=== PATIENT | male | born 1975 | race Caucasian/White ===

== ENCOUNTER 2024-10-15 21:01 | Emergency (ER) | payer OTHER, SELFPAY ==
[2024-10-15 21:08] VITALS: BP 122/78; PULSE 76; RESP 16; TEMP 36.8; O2SAT 98; BMI 29.7
--- NOTE | 2024-10-15 21:12 | CTR_ITS ---
PROCEDURE INFORMATION: Exam: CT Abdomen And Pelvis Without Contrast Exam date and time: 10/15/2024 9:17 PM Age: 49 years old Clinical indication: Abdominal pain; Prior surgery; Surgery date: 6+ months; Surgery type: Gb. Inguinal hernia; C/O left flank pain. History of stones. ; Additional info: L flank pain TECHNIQUE: Imaging protocol: Computed tomography of the abdomen and pelvis without contrast. Radiation optimization: All CT scans at this facility use at least one of these dose optimization techniques: automated exposure control; mA and/or kV adjustment per patient size (includes targeted exams where dose is matched to clinical indication); or iterative reconstruction. COMPARISON: No relevant prior studies available. RADIATION DOSE METRICS: Total DLP (mGy-cm): 801.23 FINDINGS: Lungs: Visualized lung bases are clear. Liver: The liver is unremarkable. Gallbladder and biliary ducts: Status post cholecystectomy. No significant biliary ductal dilation. Pancreas: The pancreas is unremarkable. Spleen: The spleen is unremarkable. Adrenal glands: The adrenal glands are unremarkable. Kidneys and ureters: Multiple nonobstructing bilateral nephroliths, measuring up to 0.5 cm. No hydronephrosis or hydroureter. Stomach and bowel: Mild sigmoid diverticulosis. No CT evidence of acute diverticulitis. No evidence of bowel obstruction. Appendix: The appendix is normal. Intraperitoneal space: No extraluminal free air. No significant free fluid in the abdomen or pelvis. Vasculature: Abdominal aorta and its major branches are within normal limits. No abdominal aortic aneurysm. Lymph nodes: No distinct pathologically enlarged lymphadenopathy. Urinary bladder: Punctate stone in the dependent urinary bladder may represent a recently passed punctate ureterolith. Urinary bladder demonstrates a mildly thickened bladder wall. Reproductive: Prostate is small in size with multiple small coarse calcifications. 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 Soft tissues: Visualized superficial soft tissues are within normal limits. CT/CT kidney stone [id number] IMPRESSION: 1. Multiple nonobstructing bilateral nephroliths, measuring up to 0.5 cm. No hydronephrosis or hydroureter. 2. Punctate stone in the dependent urinary bladder may represent a recently passed punctate ureterolith. 3. Urinary bladder demonstrates a mildly thickened bladder wall. This is likely incidental secondary to low level of distension. Mild cystitis could have a similar appearance.
--- NOTE | 2024-10-15 21:15 | W.ED.MALEGU ---
HPI - Male Genitourinary General: Chief complaint: Urogenital-Male Stated complaint: flank pain, pain when laying down Time Seen by Provider: 10/15/24 21:07 Source: patient Mode of arrival: ambulatory Limitations: no limitations History of Present Illness: 49-year-old male states that been having left-sided lower back pain and flank pain for last 2 days had some slight dysuria states pains been sharp nature rates 7 out of 10 is worse with movement and palpation had a history of kidney stones also has a history of chronic back pain. Denies any vomiting or fevers Associated symptoms: Deny nausea or vomiting Related Data Previous Rx's ?Medication ?Instructions ?Recorded escitalopram oxalate 10 mg tablet 10 mg PO DAILY 30 days #30 tabs 04/08/22 hydrocodone 5 mg-acetaminophen 325 1 tab PO Q6H PRN pain 5 days #20 09/03/24 mg tablet tabs methocarbamol 750 mg tablet 750 mg PO Q8H #30 tabs 09/03/24 prednisone 20 mg tablet 60 mg (3 x 20 mg) PO DAILY 5 days 09/03/24 #15 tabs naproxen 500 mg tablet (Naprosyn) 500 mg PO BID PRN pain #20 tabs 10/15/24 Allergies Allergy/AdvReac Type Severity Reaction Status Date / Time peanut Allergy ADR-Headach Verified 09/03/24 15:40 e Review of Systems Const: Denies: fever(s), chills, body aches or change in appetite ENMT: Denies: throat pain or dental pain Card: Denies: chest pain Resp: Denies: dyspnea GI: Denies: abdominal pain, nausea, vomiting or diarrhea : Reports: flank pain Musc: Reports: back pain; Denies: neck pain Skin/Breast: Denies: rash Neuro: Denies: headache(s) PFSH ED PFSH: Medical History MDD (major depressive disorder) Social History Smoking and tobacco/nicotine status: never used tobacco/nicotine Second hand smoke exposure: No Current gender identity: Male Physical Exam Const: COMMON NORMALS: no acute distress, patient oriented x3 and healthy appearing HENMT: COMMON NORMALS: normocephalic and atraumatic HEAD & SCALP: normocephalic and atraumatic Eye: COMMON NORMALS: conjunctivae normal CONJUNCTIVA: Yes conjunctivae normal Neck/C-Spine: COMMON NORMALS: full ROM and supple Chest: COMMONS NORMALS: normal inspection of the chest Resp: COMMON NORMALS: normal respiratory effort Cardio: COMMON NORMALS: regular rate RATE: regular rate GI: COMMON NORMALS: Normal to inspection, nondistended, normoactive bowel sounds present, Soft to palpation, non-tender and no masses PALPATION: Yes Soft to palpation Back/Pelvis: OTHER: Tenderness left lower back Extremity: COMMON NORMALS: normal to inspection and full ROM Neuro: COMMON NORMALS: patient oriented x3, moves all extremities and no focal motor deficits Psych: COMMON NORMALS: mental status grossly normal, Normal thought process present and cooperative THOUGHT PROCESS: Normal thought process present Skin: COMMON NORMALS: no rashes or lesions noted and no wounds GENERAL SKIN EXAM: no rashes or lesions noted Course Vital Signs: Vital signs: Vital Signs Temperature 98.2 F 10/15/24 21:08 Pulse Rate 76 10/15/24 21:08 Respiratory Rate 18 10/15/24 21:36 Blood Pressure 122/78 10/15/24 21:08 Pulse Oximetry 96 10/15/24 21:36 Oxygen Delivery Me thod Room Air 10/15/24 21:08 MDM - Male Medical Decision Making Patient presents here with back pain flank pain patient CT showed a possible recently passed stone no sign of acute kidney stone at this time pain could be from the recently passed stone or muscular he is well-appearing here he stable for discharge follow-up PCP return if worsening. Medical Records I reviewed the patient's medical records. Lab Data I reviewed the patient's lab results. 10/15/24 21:31 10/15/24 21:31 Radiology Impressions Abdomen/Pelvis CT 10/15/24 21:12 IMPRESSION: 1. Multiple nonobstructing bilateral nephroliths, measuring up to 0.5 cm. No hydronephrosis or hydroureter. 2. Punctate stone in the dependent urinary bladder may represent a recently passed punctate ureterolith. 3. Urinary bladder demonstrates a mildly thickened bladder wall. This is likely incidental secondary to low level of distension. Mild cystitis could have a similar appearance. Laboratory Results WBC 11.24 10^3/uL (3.29-11.43) 10/15/24 21: RBC 4.46 10^6/uL (3.85-5.65) 10/15/24 21: Hgb 13.00 g/dL (11.27-16.99) 10/15/24 21: Hct 39.2 % (37-53) 10/15/24 21: MCV 87.9 fl (82-101) 10/15/24 21: MCH 29.1 pg (27-33) 10/15/24 21: MCHC 33.2 g/dL (30-55) 10/15/24 21: RDW 13.2 % (12.1-15.1) 10/15/24: Plt Count 316 10^3/cmm (157-399) 10/15/24 21: MPV 9.6 fL (7.4-10.4) 10/15/24 21: Neut % (Auto) 65.6 % 10/15/24 21: Lymph % (Auto) 25.6 % 10/15/24 21: [place] % (Auto) 6.5 % 10/15/24: Eos % (Auto) 1.2 % 10/15/24: Baso % (Auto) 0.7 % 10/15/24: Neut # (Auto) 7.38 10^3/uL (1.8-7.7) 10/15/24: Lymph # (Auto) 2.9 10^3/uL (0.8-4.8) 10/15/24 21: [place] # (Auto) 0.7 10^3/uL (0.2-0.9) 10/15/24 21: Eos # (Auto) 0.1 10^3/uL (0.0-0.8) 10/15/24: Baso # (Auto) 0.1 10^3/uL (0.0-0.1) 10/15/24: Nucleated RBC % (auto) 0 % 10/15/24: Nucleated RBCs # 0.0 /100WBC 10/15/24 21: Sodium 143 mmol/L (136-145) 10/15/24 21: Potassium 3.6 mmol/L (3.5-5.1) 10/15/24 21:31 Chloride 107 mmol/L (98-107) 10/15/24 21:31 Carbon Dioxide 26 mmol/L (22-29) 10/15/24 21:31 Anion Gap 13.6 (5-19) 10/15/24 21:31 BUN 13 mg/dL (6-20) 10/15/24 21:31 Creatinine 0.8 mg/dL (0.7-1.2) 10/15/24 21: GFR Calculation 103.2 mL/min (90-130) 10/15/24 21: Glucose 113 mg/dL (65-115) 10/15/24 21: Calcium 8.9 mg/dL (8.5-10.5) 10/15/24 21: Total Bilirubin 0.2 mg/dL (0.15-1.2) 10/15/24 21: AST 14 U/L (0-40) 10/15/24 21: ALT 14 U/L (0-41) 10/15/24 21: Alkaline Phosphatase 105 U/L (40-130) 10/15/24 21:31 Total Protein 6.7 g/dL (6.6-8.7) 10/15/24 21: Albumin 4.1 g/dL (3.5-5.2) 10/15/24 21:31 Globulin 2.6 g/dL (1.3-4.6) 10/15/24 21:31 Urine Color Yellow (Yellow) 10/15/24 21:16 Urine Appearance Clear (CLEAR) 10/15/24 21:16 Urine pH 6.0 (5-7) 10/15/24 21:16 Ur Specific [place] 1.017 (1.005-1.030) 10/15/24 21:16 Urine Protein Negative (Negative) 10/15/24 21:16 Urine Glucose (UA) Negative (Normal) 10/15/24 21:16 Urine Ketones Negative (Negative) 10/15/24 21:16 Urine Blood Negative (Negative) 10/15/24 21:16 Urine Nitrate Negative (Negative) 10/15/24 21:16 Urine Bilirubin Negative (Negative) 10/15/24 21:16 Urine Urobilinogen 1.0 mg/dL (Negative) 10/15/24 21:16 Ur Leukocyte Esterase Negative (Negative) 10/15/24 21:16 Urine RBC 0-2 /hpf (0-2) 10/15/24 21:16 Urine WBC 0-5 /hpf (0-5) 10/15/24 21:16 Ur Squamous Epith Cells 0-5 /hpf (0-5) 10/15/24 21:16 Amorphous Sediment Not Reportable 10/15/24 21:16 Urine Bacteria None seen /hpf (NONE) 10/15/24 21:16 Hyaline Casts 0-4 /lpf H 10/15/24 21:16 All radiology interpretation(s) finalized by discharge Discharge Plan Discharge Patient Disposition: Home Clinical Impression: Back pain, Kidney stone Condition: Stable Prescriptions: New naproxen [Naprosyn] 500 mg tablet 500 mg PO BID PRN (Reason: pain) Qty: 20 0RF No Action hydrocodone-acetaminophen 5-325 mg tablet 1 tab PO Q6H PRN (Reason: pain) 5 Days Qty: 20 0RF prednisone 20 mg tablet 60 mg PO DAILY 5 Days Qty: 15 0RF methocarbamol 750 mg tablet 750 mg PO Q8H Qty: 30 0RF escitalopram oxalate 10 mg tablet 10 mg PO DAILY 30 Days Qty: 30 3RF Discharge Orders: Discharge ED (Routine); Ordered 10/15/24 Ordered By: Nikole Tee Discharge Diet: Advance as tolerated Discharge Activity: Resume usual activity Patient Instructions: Kidney Stones (ED), Back Pain (ED) Print Language: Thai Coding Level of Care Code ED Business Services Manager for [facility]ly[facility] Anton
[2024-10-15 21:24] LABS: Bilirubin Urine Negative (Negative); Blood Urine Negative (Negative); Glucose Urine UA Negative (Normal); Ketones Urine Negative (Negative); Leukocyte Esterase Urine Negative (Negative); Nitrate Urine Negative (Negative); Protein Urine Negative (Negative); Specific Gravity, Urine 1.017 (1.005-1.030); Urine Appearance Clear (CLEAR); Urine Color Yellow (Yellow)
[2024-10-15 21:26] LABS: Add Urine Microscopic? YES; Bacteria Urine None Seen /hpf; Hyaline Casts Urine 0-4 /lpf; RBC Urine 0-2 /hpf (0-2); Squamous Epithelial Cell Urine 0-5 /hpf (0-5); WBC Urine 0-5 /hpf (0-5)
[2024-10-15] MEDS: ketorolac 30 mg/mL INJ 15 MG IVP (21:32)
[2024-10-15] MEDS: ondansetron 2 mg/ML SDV 2 mL 4 MG IVP (21:34)
[2024-10-15 21:36] VITALS: RESP 18; O2SAT 96
[2024-10-15] MEDS: morphine 4 mg/mL SDV 1 mL IVP (21:36)
[2024-10-15 21:48] LABS: Basophils # 0.1 10^3/uL (0.0-0.1); Basophils % 0.7 %; Eosinophils # 0.1 10^3/uL (0.0-0.8); Eosinophils % 1.2 %; Hematocrit 39.2 % (37-53); Lymphocytes # 2.9 10^3/uL (0.8-4.8); Lymphocytes % 25.6 %; Mean Corpuscular HGB Conc 33.2 g/dL (30-55); Mean Corpuscular Hemoglobin 29.1 pg (27-33); Mean Corpuscular Volume 87.9 fl (82-101); Mean Platelet Volume 9.6 fL (7.4-10.4); Monocytes # 0.7 10^3/uL (0.2-0.9); Monocytes % 6.5 %; Neutrophils # 7.38 10^3/uL (1.8-7.7); Neutrophils % 65.6 %; Nucleated Red Blood Cells % 0 %; Platelet Count 316 10^3/cmm (157-399); Red Blood Count 4.46 10^6/uL (3.85-5.65); Red Cell Distribution Width 13.2 % (12.1-15.1); White Blood Count 11.24 10^3/uL (3.29-11.43)
[2024-10-15 22:08] LABS: Alanine Aminotransferase 14 U/L (0-41); Albumin Level 4.1 g/dL (3.5-5.2); Alkaline Phosphatase 105 U/L (40-130); Anion Gap 13.6 (5-19); Aspartate Amino Transferase 14 U/L (0-40); Blood Urea Nitrogen 13 mg/dL (6-20); Calcium 8.9 mg/dL (8.5-10.5); Carbon Dioxide 26 mmol/L (22-29); Chloride 107 mmol/L (98-107); Creatinine Clr Calc Pharmacy 141.7746; Globulin 2.6 g/dL (1.3-4.6); Glomerular Filtration Rate 103.2 mL/min (90-130); Glucose 113 mg/dL (65-115); Osmolality Calculated 297 mOsm/kg (285-295); Potassium 3.6 mmol/L (3.5-5.1); Sodium 143 mmol/L (136-145); Total Bilirubin 0.2 mg/dL (0.15-1.2); Total Protein 6.7 g/dL (6.6-8.7)
[2024-10-15 22:30] VITALS: BP 117/79; PULSE 79; O2SAT 98
== END 2024-10-15 22:31 | disposition home or self-care (01) ==
PROVIDERS: Emergency Provider Emergency Medicine
DX: M54.9 Dorsalgia, unspecified (principal); N20.0 Calculus of kidney
CPT/HCPCS: 74176; 80053; 81001; 85025; 96374; 96375; 99285; J1885; J2270; J2405

== ENCOUNTER 2024-12-03 18:11 | Emergency (ER) | payer OTHER, SELFPAY ==
[2024-12-03] VITALS (9 sets, daily range): BP systolic 118–140; BP diastolic 72–80; PULSE 55–71; RESP 16; TEMP 37.1; O2SAT 96–100; BMI 27.4
--- NOTE | 2024-12-03 19:59 | CTR_ITS ---
PROCEDURE INFORMATION: Exam: CT Abdomen And Pelvis With Contrast Exam date and time: 12/03/2024 8:16 PM Age: 49 years old Clinical indication: Abdominal pain; Localized; Right lower quadrant (rlq); Prior surgery; Surgery date: 6+ months; Surgery type: Gb. Inguinal hernia repair; C/O periumbilical/rlq pain; Additional info: Abd pain with migration to rlq TECHNIQUE: Imaging protocol: Computed tomography of the abdomen and pelvis with contrast. Radiation optimization: All CT scans at this facility use at least one of these dose optimization techniques: automated exposure control; mA and/or kV adjustment per patient size (includes targeted exams where dose is matched to clinical indication); or iterative reconstruction. Contrast material: OMNI 350; Contrast volume: 100 ml; Contrast route: INTRAVENOUS (IV); COMPARISON: CT kidney stone [id number] 10/15/2024 9:17 PM RADIATION DOSE METRICS: Total DLP (mGy-cm): 763.23 FINDINGS: Lungs: The lung bases are clear. Liver: Normal. No mass. Gallbladder and biliary ducts: The gallbladder is surgically absent. Pancreas: Normal. No ductal dilation. Spleen: Normal. No splenomegaly. Adrenal glands: Normal. No mass. Kidneys and ureters: There are several small nonobstructing calculi in each kidney measuring up to 5 mm. Stomach and bowel: Unremarkable. No obstruction. No mucosal thickening. Appendix: The appendix is normal. Intraperitoneal space: Unremarkable. No free air. No significant fluid collection. Vasculature: Unremarkable. No abdominal aortic aneurysm. Lymph nodes: Unremarkable. No enlarged lymph nodes. Urinary bladder: Unremarkable as visualized. Reproductive: Unremarkable as visualized. Bones/joints: Chronic left sacral cyst at the S2 level. Soft tissues: Unremarkable. CT/CT abdomen pelvis w con* [id number] IMPRESSION: 1. No acute abdominopelvic findings. 2. Bilateral nonobstructing intrarenal stones.
--- NOTE | 2024-12-03 20:00 | ED_ITS ---
HPI - Abdominal Pain 2 General: Chief Complaint: Abdominal Pain Stated Complaint: abd clenching knot in stomach n/v/d Time Seen by Provider: 12/03/24 19:31 Source: patient Mode of arrival: ambulatory Limitations: no limitations History of Present Illness: This patient made his way to the [facility] part today because of abdominal pain. He states over the past approximately 6 weeks he has had some intermittent episodes of cramping diarrhea and vomiting that have been present as noted intermittently without any progression to continuous pain or other concerns. He states he has been trying to manage this with dietary changes. He states that the symptoms rarely awaken him from sleep and only if he has to have a loose stool. However today he noted increasing center abdominal pain with some sensation of pressure or a fist in his epigastric region and subsequently has had more pain in his right lower quadrant. He has not had any bloody stools, black tarry stools. He has not any bloody emesis. He has had a prior cholecystectomy. No other abdominal surgeries. No history of irritable bowel syndrome. He takes his usual prescribed medications. He denies any recent travel, associated fever, associated exposure to infectious disease. He had a mild nonproductive cough. He does not use tobacco and rarely drinks alcohol. He had a prior history of kidney stones but this pain that he is experiencing is quite unlike his previously known kidney stone pain. MD elicited complaint: abdominal pain Migration to: RLQ Exacerbating factors: nothing Relieving factors: nothing Associated Symptoms: Denies chills, dysuria, fever(s) and syncope Related Data Previous Rx's ?Medication ?Instructions ?Recorded escitalopram oxalate 10 mg tablet 10 mg PO DAILY 30 da ys #30 tabs 04/08/22 dicyclomine 10 mg capsule 10 mg PO QID PRN abdominal p ain 12/03/24 #20 caps Allergies Allergy/AdvReac Type Severity Reaction Status Date / Time peanut Allergy ADR-Headach Verified 12/03/24 18:17 e Review of Systems 2 Const: Reports: change in appetite; Denies: fever(s) or chills Eyes: Denies: change in vision ENMT: Denies: throat pain, odynophagia, nasal discharge or nasal congestion Card: Denies: chest pain, syncope or pre-syncope Resp: Reports: non-productive cough; Denies: dyspnea or productive cough GI: Reports: abdominal pain : Denies: flank pain, difficulty urinating, dysuria or urinary frequency Musc: Denies: neck pain, back pain, extremity pain or extremity swelling Skin/Breast: Denies: rash Neuro: Denies: headache(s), numbness in extremities or weakness in extremities Psych: Reports: depression All/Imm: Reports: other PFSH ED 2 PFSH: Medical History Viral syndrome MDD (major depressive disorder) Social History Smoking and tobacco/nicotine status: never used tobacco/nicotine Second hand smoke exposure: No Current gender identity: Male Physical Exam 2 Narrative: EXAM NARRATIVE: He is lying comfortably on the examination cot. He is cooperative and answers questions appropriately in a goal-directed fashion. Const: COMMON NORMALS: no acute distress, average body habitus and patient oriented x3 GENERAL APPEARANCE: cooperative and comfortable HENMT: COMMON NORMALS: atraumatic, Normal nasal mucous membranes and turbinates present and moist oral mucous membranes HEAD & SCALP: atraumatic NOSE: Normal nasal mucous membranes and turbinates present Eye: COMMON NORMALS: Equal, round and reactive pupils present, EOMs intact bilaterally, conjunctivae normal and no scleral icterus CONJUNCTIVA: Yes conjunctivae normal PUPIL: Yes Equal, round and reactive pupils present Neck/C-Spine: COMMON NORMALS: full ROM and no lymphadenopathy Resp: COMMON NORMALS: normal respiratory effort, No use of accessory muscles and clear to auscultation bilaterally EFFORT & INSPECTION: Yes able to speak in complete sentences AUSCULTATION: clear to auscultation bilaterally Cardio: COMMON NORMALS: regular rate, regular rhythm, No murmurs present (Cardio) and Peripheral pulses 2+ throughout RATE: regular rate RHYTHM: r egular rhythm PERIPHERAL PULSES: Peripheral pulses 2+ throughout GI: OTHER: Abdominal examination revealed tenderness in the lower epigastrium and superior to the umbilicus. He also has tenderness with some voluntary guarding in the right lower quadrant. He does have exacerbation of his symptoms with internal/external rotation of the right hip. : COMMON NORMALS: Yes no CVA tenderness BLADDER/KIDNEY EXAM: Yes no CVA tenderness Back/Pelvis: COMMON NORMALS: no CVA tenderness, thoracic and lumbar spine normal to inspection, no thoracic nor lumbar tenderness and thoraco-lumbar ROM normal Extremity: COMMON NORMALS: normal to inspection, full ROM, no calf tenderness and no pedal edema Neuro: COMMON NORMALS: patient oriented x3, moves all extremities, no focal motor deficits and no sensory deficits noted Psych: COMMON NORMALS: mental status grossly normal Skin: COMMON NORMALS: no rashes or lesions noted, no wounds and turgor normal GENERAL SKIN EXAM: no rashes or lesions noted and turgor normal Course 2 Reevaluation(s): Reevaluation #1: Patient states he still has similar discomfort that is returned after imaging. Again no significant concerning findings on imaging and his abdominal pain does not suggest peritoneal irritation etc. on repeat exam. Time: 22:02 Reevaluation #2: Patient is improved and comfortable. Discussed all findings and their implications and limitations. At this point there is no evidence of a surgical condition and his laboratories are all reassuring. Discussed the need for close follow-up and return precautions with both he and accompanying family member. Time: 22:56 Vital Signs: Vital signs: Vital Signs Temperature 98.7 F 12/03/24 18:16 Pulse Rate 65 12/03/24 22:30 Respiratory Rate 16 12/03/24 21:00 Blood Pressure 140/79 12/03/24 22:30 Pulse Oximetry 99 12/03/24 22:30 Oxygen Delivery Me thod Room Air 12/03/24 22:30 MDM - Abdominal Pain Medical Decision Making This patient presented as noted in the HPI. He had had admitted approximately 6 weeks of intermittent abdominal symptoms to include loose stools cramping and some emesis. Has had a prior cholecystectomy. He does not have a history of irritable bowel or inflammatory bowel disease. No travel dietary changes etc. This pain seemed to reach a crescendo today which prompted him to come to the emergency department. There were no history of blood in his stools blood in his emesis etc. His clinical examination was nonspecific but there was some right lower quadrant tenderness so therefore laboratories and imaging were obtained. Imaging revealed no evidence of surgical condition such as bowel obstruction appendicitis or other potential surgical conditions. There was no evidence of renal lithiasis etc. There was no evidence of aortic aneurysm or other potential pathology. Urinalysis and chemistries and liver tests were also normal. The patient did respond to analgesic interventions in the emergency department and is stable at this time to be discharged but will need additional workup and this was discussed in detail with both the patient and accompanying family. He voiced understanding and is stable to be discharged at this time return precautions were also reviewed. Lab Data I reviewed the patient's lab results. 12/03/24 20:35 12/03/24 20:35 Labs/Radiology: Radiology Impressions Abdomen/Pelvis CT 12/03/24 19:59 IMPRESSION: 1. No acute abdominopelvic findings. 2. Bilateral nonobstructing intrarenal stones. Laboratory Results WBC 7.16 10^3/uL (3.29-11.43) 12/03/24 20:35 RBC 4.01 10^6/uL (3.85-5.65) 12/03/24 20:35 Hgb 11.60 g/dL (11.27-16.99) 12/03/24 20:35 Hct 35.6 % (37-53) L 12/03/24 20:35 MCV 88.8 fl (82-101) 12/03/24 20:35 MCH 28.9 pg (27-33) 12/03/24 20:35 MCHC 32.6 g/dL (30-55) 12/03/24 20:35 RDW 13.2 % (12.1-15.1) 12/03/24 20:35 Plt Count 251 10^3/cmm (157-399) 12/03/24 20:35 MPV 9.5 fL (7.4-10.4) 12/03/24 20:35 Neut % (Auto) 61.6 % 12/03/24 20:35 Lymph % (Auto) 28.1 % 12/03/24 20:35 [place] % (Auto) 7.3 % 12/03/24 20:35 Eos % (Auto) 2.0 % 12/03/24 20:35 Baso % (Auto) 0.7 % 12/03/24 20:35 Neut # (Auto) 4.42 10^3/uL (1.8-7.7) 12/03/24 20:35 Lymph # (Auto) 2.0 10^3/uL (0.8-4.8) 12/03/24 20:35 [place] # (Auto) 0.5 10^3/uL (0.2-0.9) 12/03/24 20:35 Eos # (Auto) 0.1 10^3/uL (0.0-0.8) 12/03/24 20:35 Baso # (Auto) 0.1 10^3/uL (0.0-0.1) 12/03/24 20:35 Nucleated RBC % (auto) 0 % 12/03/24 20:35 Nucleated RBCs # 0.0 /100WBC 12/03/24 20:35 Sodium 141 mmol/L (136-145) 12/03/24 20:35 Potassium 3.7 mmol/L (3.5-5.1) 12/03/24 20:35 Chloride 103 mmol/L (98-107) 12/03/24 20:35 Carbon Dioxide 25 mmol/L (22-29) 12/03/24 20:35 Anion Gap 16.7 (5-19) 12/03/24 20:35 BUN 9 mg/dL (6-20) 12/03/24 20:35 Creatinine 0.7 mg/dL (0.7-1.2) 12/03/24 20:35 GFR Calculation 120.4 mL/min (90-130) 12/03/24 20:35 Glucose 77 mg/dL (65-115) 12/03/24 20:35 Calculated Osmolality 289 mOsm/kg (285-295) 12/03/24 20:35 Calcium 9.6 mg/dL (8.5-10.5) 12/03/24 20:35 Total Bilirubin 0.2 mg/dL (0.15-1.2) 12/03/24 20:35 AST 17 U/L (0-40) 12/03/24 20:35 ALT 22 U/L (0-41) 12/03/24 20:35 Alkaline Phosphatase 95 U/L (40-130) 12/03/24 20:35 Total Protein 7.3 g/dL (6.6-8.7) 12/03/24 20:35 Albumin 4.2 g/dL (3.5-5.2) 12/03/24 20:35 Globulin 3.1 g/dL (1.3-4.6) 12/03/24 20:35 Lipase 29 U/L (13-60) 12/03/24 20:35 Urine Color Yellow (Yellow) 12/03/24 20:50 Urine Appearance Clear (CLEAR) 12/03/24 20:50 Urine pH 5.5 (5-7) 12/03/24 20:50 Ur Specific [place] 1.048 (1.005-1.030) H 12/03/24 20:50 Urine Protein Negative (Negative) 12/03/24 20:50 Urine Glucose (UA) Negative (Normal) 12/03/24 20:50 Urine Ketones 1+ (Negative) H 12/03/24 20:50 Urine Blood Negative (Negative) 12/03/24 20:50 Urine Nitrate Negative (Negative) 12/03/24 20:50 Urine Bilirubin Negative (Negative) 12/03/24 20:50 Urine Urobilinogen 1.0 mg/dL (Negative) 12/03/24 20:50 Ur Leukocyte Esterase Negative (Negative) 12/03/24 20:50 Urine RBC 0-2 /hpf (0-2) 12/03/24 20:50 Urine WBC 0-5 /hpf (0-5) 12/03/24 20:50 Ur Squamous Epith Cells 0-5 /hpf (0-5) 12/03/24 20:50 Amorphous Sediment Not Reportable 12/03/24 20:50 Urine Bacteria None seen /hpf (NONE) 12/03/24 20:50 Hyaline Casts 0.40 /lpf 12/03/24 20:50 All radiology interpretation(s) finalized by discharge Discharge Plan Discharge Patient Disposition: Home Clinical Impression: Abdominal pain Qualifiers: Abdominal location: unspecified location Qualified Code(s): R10.9 - Unspecified abdominal pain Condition: Stable Prescriptions: New dicyclomine 10 mg capsule 10 mg PO QID PRN (Reason: abdominal pain) Qty: 20 1RF No Action escitalopram oxalate 10 mg tablet 10 mg PO DAILY 30 Days Qty: 30 3RF Discharge Orders: Discharge ED (Routine); Ordered 12/03/24 Ordered By: Irineo Stallworth Referrals: Ольга Mo PA-C [Primary Care Provider, Physicians Sports Equipment Supervisor] - 1 week Referral Note: Patient seen in the emergency department for abdominal pain will likely need additional workup to include endoscopy Discharge Diet: Advance as tolerated Discharge Activity: Increase activity as tolerated Patient Instructions: Abdominal Pain (ED), Opioid Safety, Pain Management, Patient Portal & Jaswinder Instructions Activity Restrictions/Additional Instructions: As we discussed while you are in the emergency department your evaluation here did not reveal any acute condition that we would require immediate attention such as surgery for appendicitis, bowel obstruction etc. Your other laboratory studies were also reassuring and normal. You will need additional evaluation to help discern other potential causes of your symptoms. You should call your primary care clinic on Friday to discuss those options and referrals. If your pain worsens, you start developing high fevers, you start having vomiting diarrhea or other concerning symptoms return to this or the nearest emergency department at any time. We have prescribed a medication to help with any abdominal cramping and discomfort that you might have. It is important that you keep well-hydrated and drink at least 2 quarts of fluid a day. You should advance to a regular diet as you tolerate it. Print Language: Occitan Coding Level of Care Code ED Employee Benefits Coordinator for Ilya Anton
[2024-12-03] MEDS: ondansetron 2 mg/ML SDV 2 mL 4 MG IVP (20:08)
[2024-12-03] MEDS: morphine 4 mg/mL SDV 1 mL IVP (20:09)
[2024-12-03] MEDS: lactated ringers 1,000 ML 999 ML IV (20:13)
[2024-12-03] MEDS: iohexol 350 mg/mL 500 mL Btl (per mL) IV (20:16)
[2024-12-03 20:48] LABS: Basophils # 0.1 10^3/uL (0.0-0.1); Basophils % 0.7 %; Eosinophils # 0.1 10^3/uL (0.0-0.8); Hematocrit 35.6 % (37-53); Lymphocytes % 28.1 %; Mean Corpuscular HGB Conc 32.6 g/dL (30-55); Mean Corpuscular Hemoglobin 28.9 pg (27-33); Mean Corpuscular Volume 88.8 fl (82-101); Mean Platelet Volume 9.5 fL (7.4-10.4); Monocytes # 0.5 10^3/uL (0.2-0.9); Monocytes % 7.3 %; Neutrophils # 4.42 10^3/uL (1.8-7.7); Neutrophils % 61.6 %; Nucleated Red Blood Cells % 0 %; Platelet Count 251 10^3/cmm (157-399); Red Blood Count 4.01 10^6/uL (3.85-5.65); Red Cell Distribution Width 13.2 % (12.1-15.1); White Blood Count 7.16 10^3/uL (3.29-11.43)
[2024-12-03 21:01] LABS: Bilirubin Urine Negative (Negative); Blood Urine Negative (Negative); Glucose Urine UA Negative (Normal); Ketones Urine 1+ (Negative); Leukocyte Esterase Urine Negative (Negative); Nitrate Urine Negative (Negative); Protein Urine Negative (Negative); Urine Appearance Clear (CLEAR); Urine Color Yellow (Yellow); pH Urine 5.5 (5-7)
[2024-12-03 21:03] LABS: Alanine Aminotransferase 22 U/L (0-41); Albumin Level 4.2 g/dL (3.5-5.2); Alkaline Phosphatase 95 U/L (40-130); Anion Gap 16.7 (5-19); Aspartate Amino Transferase 17 U/L (0-40); Blood Urea Nitrogen 9 mg/dL (6-20); Calcium 9.6 mg/dL (8.5-10.5); Carbon Dioxide 25 mmol/L (22-29); Chloride 103 mmol/L (98-107); Globulin 3.1 g/dL (1.3-4.6); Glomerular Filtration Rate 120.4 mL/min (90-130); Glucose 77 mg/dL (65-115); Lipase 29 U/L (13-60); Osmolality Calculated 289 mOsm/kg (285-295); Potassium 3.7 mmol/L (3.5-5.1); Sodium 141 mmol/L (136-145); Total Bilirubin 0.2 mg/dL (0.15-1.2); Total Protein 7.3 g/dL (6.6-8.7)
[2024-12-03 21:03] LABS: Add Urine Microscopic? YES; Bacteria Urine None Seen /hpf; RBC Urine 0-2 /hpf (0-2); Squamous Epithelial Cell Urine 0-5 /hpf (0-5); WBC Urine 0-5 /hpf (0-5)
[2024-12-03 21:05] LABS: Specific Gravity, Urine 1.048 (1.005-1.030)
[2024-12-03] MEDS: hyoscyamine ODT 0.125 mg Tablet 0.25 MG PO (21:23)
[2024-12-03] MEDS: haloperidol inj 5 mg/mL INJ 1 mL IVP (22:10)
[2024-12-03] MEDS: diphenhydrAMINE 50 mg/mL SDV 1mL 12.5 MG IVP (22:10)
--- NOTE | 2024-12-03 22:14 | PC.NURSE ---
Pt requesting more morphine, pt states I don't mean to sound like I'm using that line but it takes 2 shots of morphine to help my pain. notified of pt wanting more pain meds.
== END 2024-12-03 23:08 | disposition home or self-care (01) ==
PROVIDERS: Emergency Provider Emergency Medicine; PCP Physician Assistant
DX: R10.9 Unspecified abdominal pain (principal)
CPT/HCPCS: 74177; 80053; 81001; 83690; 85025; 96361; 96374; 96375; 99285; J1200; J1630; J2270; J2405; J7120; J9999